=== PATIENT | female | born 1960 | race Hispanic/Latino ===

== ENCOUNTER → 2024-04-13 | Day surgery (SDC) | payer BC ==
[~2024-04-13] MED LIST: LIPITOR10 MG PO; METOPROLOL SUCC50 MG PO; MICARDIS80 MG PO; PROBIOTIC & AC1 EACH PO; PROPOFOL IV EMULSION 10 MG/ML 50 ML VIAL IV ONE; RENADYL PO
[2024-04-13] MEDS: LACTATED RINGER'S 1,000 ML ONE (09:17)
[2024-04-13 11:47] VITALS: TEMP 97.8
[2024-04-13 12:15] VITALS: BP 130/89; PULSE 78; RESP 16; O2SAT 97
== END | disposition home or self-care (01) ==
LOC: OR 07:34
PROVIDERS: ATTEND Internal Medicine Gastroenterology
DX: Z12.11 Encounter for screening for malignant neoplasm of colon (principal); D12.3 Benign neoplasm of transverse colon; K57.30 Diverticulosis of large intestine without perforation or abscess without bleeding; K64.8 Other hemorrhoids; I10 Essential (primary) hypertension; Z78.9 Other specified health status; E78.5 Hyperlipidemia, unspecified; I69.851 Hemiplegia and hemiparesis following other cerebrovascular disease affecting right dominant side; E11.9 Type 2 diabetes mellitus without complications; E66.01 Morbid (severe) obesity due to excess calories; M25.569 Pain in unspecified knee; Z01.810 Encounter for preprocedural cardiovascular examination; Z79.899 Other long term (current) drug therapy; Z68.41 Body mass index [BMI] 40.0-44.9, adult
CPT/HCPCS: 45385; 88305; 93005; J2704; J7121